=== PATIENT | female | born 1965 | race Caucasian/White ===

== ENCOUNTER → 2017-11-19 | Emergency (ER) | payer OTHER ==
[~2017-11-19] VITALS: Ht 165.1 cm; Wt 59.0 kg
[~2017-11-19] MED LIST: KETO10TA2 PO; NASONEX17 GM NS; SUDAFED 12 HOU120 MG PO
== END | disposition home or self-care (01) ==
LOC: ER 16:21
DX: N83.291 Other ovarian cyst, right side (principal); D25.9 Leiomyoma of uterus, unspecified

== ENCOUNTER 2017-12-20 06:24 | Day surgery (SDC) | payer OTHER ==
[2017-12-20] MEDS ORDERED: DICLOFENAC POTA50 MG PO (12:31)
[2017-12-20] MEDS ORDERED: PERCOCET 5-3251 EACH PO (12:32)
== END 2017-12-20 14:50 | disposition home or self-care (01) ==
LOC: CIR.AMB 06:24
DX: D27.0 Benign neoplasm of right ovary (principal); N83.8 Other noninflammatory disorders of ovary, fallopian tube and broad ligament

== ENCOUNTER 2018-05-14 01:19 | Emergency (ER) | payer OTHER ==
[~2018-05-14] VITALS: Ht 165.1 cm; Wt 58.1 kg
[~2018-05-14 01:19] MED LIST changes: +DICLOFENAC POTA50 MG PO; +PERCOCET 5-3251 EACH PO
[2018-05-14] MEDS ORDERED: ADVIL100 M1 (01:40)
[2018-05-14] MEDS ORDERED: KETO10TA2 PO (05:56)
[2018-05-14] MEDS ORDERED: OSEL75CA PO (05:56)
[2018-05-14] MEDS ORDERED: ZITHROMAX TRI-500 MG PO (05:56)
[2018-05-14] MEDS ORDERED: PROMETH-CODEIN 65 ML PO (05:56)
== END 2018-05-14 06:12 | disposition home or self-care (01) ==
LOC: ER 01:19
DX: J06.9 Acute upper respiratory infection, unspecified (principal)

== ENCOUNTER 2018-09-02 13:03 | Emergency (ER) | payer OTHER ==
[~2018-09-02] VITALS: Ht 165.1 cm; Wt 58.5 kg
[~2018-09-02 13:03] MED LIST changes: +ADVIL100 M1; +OSEL75CA PO; +PROMETH-CODEIN 65 ML PO; +ZITHROMAX TRI-500 MG PO
[2018-09-02] MEDS ORDERED: NAPR500T14 PO (19:35)
== END 2018-09-02 22:24 | disposition home or self-care (01) ==
LOC: ER 13:03
DX: M25.522 Pain in left elbow (principal)